=== PATIENT | male | born 1950 | race Caucasian/White ===

== ENCOUNTER 2018-01-16 03:09 | Outpatient (CLI) | payer BC, SELFPAY ==
[2018-01-16 13:06] LABS: ALT 43 U/L (12-78); AST 33 U/L (15-37); Albumin 3.9 g/dL (3.4-5.0); Alkaline Phosphatase 106 U/L (46-116); Anion Gap 4.2 mmol/L (3-11); BUN 12 mg/dL (7-18); CO2 29.8 mmol/L (21.0-32.0); CREATININE 1.12 mg/dL (0.70-1.30); Calcium 9.2 mg/dL (8.5-10.1); Chloride 106 mmol/L (98-107); Cholesterol 127 mg/dL (50-200); Glucose 98 mg/dL (70-100); HDL Cholesterol 45 mg/dL (40-60); LDL CHOLESTEROL 74 mg/dL (<100); Potassium 4.4 mmol/L (3.5-5.1); Sodium 140 mmol/L (136-145); Triglyceride 61 mg/dL (30-150)
[2018-01-19 10:09] LABS: HBs Antibody, Quant 159.1 mIU/mL; Hepatitis B Surface Ab Positive
[2018-01-19 10:41] LABS: Measles IgG Antibody Negative; Mumps Antibody IgG Negative; Rubella IgG Ab (UVM) Positive; Varicella IgG Antibody Positive
[2018-01-19 11:56] LABS: Hep A Total Ab w Rflx IgM Negative (NEGAT)
== END 2018-01-16 03:29 ==
PROVIDERS: PCP Nurse Practitioner Family; Visit Provider Nurse Practitioner Family
DX: Z00.00 Encounter for general adult medical examination without abnormal findings (principal); Z13.228 Encounter for screening for other metabolic disorders; Z13.220 Encounter for screening for lipoid disorders; Z11.59 Encounter for screening for other viral diseases
CPT/HCPCS: 36415; 80053; 80061; 83721; 86706; 86709; 86787; 86735; 86762; 86765

== ENCOUNTER 2018-02-26 10:23 | Outpatient (REF) | payer BC, SELFPAY | END 2018-02-26 10:43 | LOC: NCHCN 10:23 | PROVIDERS: PCP Nurse Practitioner Family; Visit Provider Nurse Practitioner Family | DX: R19.7 Diarrhea, unspecified (principal) | CPT/HCPCS: 82272; 83630; 87324 ==

== ENCOUNTER 2018-02-27 08:18 | Outpatient (REF) | payer BC, SELFPAY ==
[2018-02-28 10:49] LABS: Campylobacter PCR SEE COMMENTS; Salmonella PCR SEE COMMENTS; Shiga Toxin PCR SEE COMMENTS; Shigella/Enteroinvasive Ecoli SEE COMMENTS
== END 2018-02-27 08:38 ==
LOC: NCHCN 08:18
PROVIDERS: PCP Nurse Practitioner Family; Visit Provider Nurse Practitioner Family
DX: R19.7 Diarrhea, unspecified (principal)
CPT/HCPCS: 87329; 87505; 87177

== ENCOUNTER 2019-01-21 12:00 | Outpatient (REF) | payer BC, MEDICARE, SELFPAY ==
[2019-01-21 12:38] LABS: BUN 14 mg/dL (7-18); CREATININE 0.95 mg/dL (0.70-1.30); Calcium 9.2 mg/dL (8.5-10.1); Calculated LDL 82 mg/dL; Chloride 106 mmol/L (98-107); Cholesterol 142 mg/dL (50-200); Glucose 102 mg/dL (70-100); HDL Cholesterol 51 mg/dL (40-60); Potassium 4.4 mmol/L (3.5-5.1); Sodium 140 mmol/L (136-145); Triglyceride 47 mg/dL (30-150)
[2019-01-22 10:36] LABS: PSA, Screening 0.6 ng/ml (0-4.5)
== END 2019-01-21 12:20 ==
LOC: NCHCN 12:00
PROVIDERS: PCP Nurse Practitioner Family; Visit Provider Nurse Practitioner Family
DX: Z00.00 Encounter for general adult medical examination without abnormal findings (principal); R03.0 Elevated blood-pressure reading, without diagnosis of hypertension; M54.2 Cervicalgia; E78.5 Hyperlipidemia, unspecified; K22.70 Barrett's esophagus without dysplasia; Z12.5 Encounter for screening for malignant neoplasm of prostate
CPT/HCPCS: 80048; 80061; 84153

== ENCOUNTER 2019-07-23 06:49 | Outpatient (CLI) | payer BC, MEDICARE, SELFPAY ==
--- NOTE | 2019-07-23 | DI.US_ITS ---
EXAM: US CAROTID CLINICAL HISTORY: CAROTID ARTERY STENOSIS, BILATERAL, I65.23. TECHNIQUE: Ultrasound carotids performed using grayscale, color-flow, and spectral Doppler imaging. COMPARISON: No exams were available for comparison FINDINGS: On the right, there is mild to moderate calcific plaque in the carotid bulb and proximal internal car otid artery. No hemodynamically significant internal carotid artery stenosis is present. The right vertebral artery is antegrade. On the left, there is mild to moderate calcific plaque in the carotid bulb and proximal internal otoole tid artery. No hemodynamically significant internal carotid artery stenosis is present. The left ve rtebral artery is antegrade. IMPRESSION: No evidence for hemodynamically significant carotid stenosis. Criteria for Carotid Stenosis: Normal: ICA PSV <125 cm/s no plaque or intimal thickening is visible. <50% stenosis: ICA PSV <125 cm/s and plaque or intimal thickening is visible. 50-69% stenosis: ICA PSV is 125-250 cm/s and plaque is visible. >70% stenosis to near occlusion: ICA PSV >250 cm/s with visible plaque and luminal narrowing. DATA REPOSITORY:
== END 2019-07-23 07:09 ==
PROVIDERS: PCP Nurse Practitioner Family; Visit Provider Nurse Practitioner Family
DX: I65.23 Occlusion and stenosis of bilateral carotid arteries (principal)
CPT/HCPCS: 93880

== ENCOUNTER 2020-09-05 12:36 | Outpatient (REF) | payer BC, SELFPAY ==
[2020-09-05 14:11] LABS: ALT 42 U/L (16-63); AST 36 U/L (15-37); Albumin 4.1 g/dL (3.4-5.0); Alkaline Phosphatase 90 U/L (46-116); Anion Gap 7.8 mmol/L (3-11); BUN 14 mg/dL (7-18); Bilirubin, Total 1.4 mg/dL (0.2-1.0); CO2 28.2 mmol/L (21.0-32.0); Calcium 9.1 mg/dL (8.5-10.1); Calculated LDL 81 mg/dL (<100); Chloride 106 mmol/L (98-107); Cholesterol 143 mg/dL (<200); Glucose 101 mg/dL (74-106); HDL Cholesterol 53 mg/dL (40-60); Potassium 4.1 mmol/L (3.5-5.1); Sodium 142 mmol/L (136-145); Total Protein 7.2 g/dL (6.4-8.2); Triglyceride 49 mg/dL (<150)
== END 2020-09-05 12:37 | disposition home or self-care (01) ==
LOC: NCHCN 12:36
PROVIDERS: PCP Nurse Practitioner Family; Visit Provider Nurse Practitioner Family
DX: Z00.00 Encounter for general adult medical examination without abnormal findings (principal); E78.5 Hyperlipidemia, unspecified; R03.0 Elevated blood-pressure reading, without diagnosis of hypertension
CPT/HCPCS: 80053; 80061

== ENCOUNTER 2021-01-03 01:11 | Outpatient (CLI) | payer BC, SELFPAY ==
--- NOTE | 2021-01-03 | DI.CT_ITS ---
Exam(s) CT ABDOMEN W EXAM: CT ABDOMEN W CLINICAL HISTORY: RUQ PAIN, R10.11, ELEVATED BILIRUBIN, R17 TECHNIQUE: IV contrast: Omnipaque 350-100 mL Oral contrast: Yes COMPARISON: CT ABD PELVIS WITH CONTRAST from 08/17/2008 FINDINGS: Visualized lung bases are clear. No pleural effusions. There is no ascites evident in the upper abdomen. There is a 2 millimeter benign cyst in the left he patic lobe. No ominous focal hepatic lesions. Calcified granuloma in the right hepatic lobe is note d. No dilatation of intrahepatic ducts No obvious gallbladder pathology. CBD is not dilated. Pancreas appears unremarkable. No pancreatic masses nor dilatation of the pancreatic duct. There is no peripancreatic fluid. Spleen: Normal size. There are few calcified splenic granulomas. No ominous splenic lesions. The s plenic and portal veins are patent. Adrenals: No significant adrenal masses. Kidneys: No focal findings in the kidneys. No hydronephrosis. No hydroureter. Urinary bladder is n ot included in the field of view of this abdomen only study. Abdominal aorta: No aneurysm. However, the distal abdominal aorta is atherosclerotic and calcified a s are the visualized common hepatic arteries. No evidence of aneurysm of these vessels nor obvious t ight stenosis. Lymph nodes: There is no para-aortic adenopathy. There are no prominent mesenteric lymph nodes. Anterior abdominal wall: No evidence of significant hernia. Osseous: No compression fractures. Advanced disc space narrowing at L2-3 level. IMPRESSION: 1. In this patient apparently has elevated bilirubin there is no obvious abnormality in the gallbladd er on CT scan and there is no dilatation of the biliary tree, both intra and extrahepatic. Gallbladd er is not distended. There are no concerning hepatic lesions. 2. Calcified-atherosclerotic abdominal aorta but no evidence of significant aneurysm. 3. Please note that the pelvis was not scanned.
[2021-01-03] MEDS: Omnipaque 350 MG/ML 100 ML BTL IJ ×2 (13:54→13:55)
[2021-01-03] MEDS: Breeza Beverage 473 ML BTL PO (13:55)
== END 2021-01-03 01:31 ==
PROVIDERS: PCP Nurse Practitioner Family; Visit Provider Nurse Practitioner Family
DX: R10.11 Right upper quadrant pain (principal); R17 Unspecified jaundice; N25.9 Disorder resulting from impaired renal tubular function, unspecified; I70.0 Atherosclerosis of aorta
CPT/HCPCS: 74160; 82565; J3490

== ENCOUNTER 2021-01-17 16:27 | Outpatient (REF) | payer BC, SELFPAY ==
[2021-01-17 20:39] LABS: HCT 40.5 % (40.0-50.0); HGB 13.4 g/dL (13.5-17.5); MCH 30.5 pg (27.0-33.0); MCHC 33.1 % (32.0-36.0); Platelet Count 206 10^3/uL (130-400); RDW 12.8 % (11.8-14.1); WBC 5.26 10^3/uL (4.4-10.8)
[2021-01-17 20:43] LABS: Lipase 187 U/L (73-393)
[2021-01-17 20:47] LABS: Iron 85 ug/dL (65-175); Total Iron Binding Capacity 341 ug/dL (250-450); Transferrin Sat 25 % (20-55)
[2021-01-17 21:30] LABS: Vitamin B12 316 pg/mL (193-986)
== END 2021-01-17 16:28 | disposition home or self-care (01) ==
LOC: NCHCN 16:27
PROVIDERS: PCP Nurse Practitioner Family; Visit Provider Nurse Practitioner Family
DX: R17 Unspecified jaundice (principal)
CPT/HCPCS: 83690; 85027; 82607; 83540; 83550

== ENCOUNTER 2021-04-25 15:07 | Outpatient (REF) | payer BC, SELFPAY ==
[2021-04-26 09:33] LABS: PSA, Screening 0.9 ng/mL (0.0-4.5)
[2021-04-26 10:12] LABS: Hepatitis B Surface Ag Negative (Negative)
[2021-04-26 10:16] LABS: Hepatitis C Ab w Rflx HCV PCR Negative (Negative)
== END 2021-04-25 15:08 | disposition home or self-care (01) ==
LOC: NCHCN 15:07
PROVIDERS: PCP Nurse Practitioner Family; Visit Provider Family Medicine
DX: Z00.00 Encounter for general adult medical examination without abnormal findings (principal); Z12.5 Encounter for screening for malignant neoplasm of prostate; Z11.9 Encounter for screening for infectious and parasitic diseases, unspecified
CPT/HCPCS: 84153; 86803; 87340

== ENCOUNTER 2022-06-14 12:59 | Outpatient (REF) | payer MEDICARE, SELFPAY ==
[2022-06-14 15:16] LABS: HCT 45.5 % (40.0-50.0); HGB 15.1 g/dL (13.5-17.5); MCH 30.2 pg (27.0-33.0); MCHC 33.2 % (32.0-36.0); MCV 91 fL (80-95); MPV 11.2 fL (8.0-11.0); Platelet Count 141 10^3/uL (130-400); RDW 12.5 % (11.8-14.1); RDW-SD 41.2 fL; WBC 5.33 10^3/uL (4.4-10.8)
[2022-06-14 15:29] LABS: Calculated LDL 99 mg/dL (<100); Cholesterol 167 mg/dL (<200); HDL Cholesterol 52 mg/dL (40-60); Triglyceride 84 mg/dL (<150)
== END 2022-06-14 13:00 | disposition home or self-care (01) ==
LOC: NCHCN 12:59
PROVIDERS: PCP Nurse Practitioner Family; Visit Provider Nurse Practitioner Family
DX: E78.5 Hyperlipidemia, unspecified (principal); Z00.00 Encounter for general adult medical examination without abnormal findings
CPT/HCPCS: 80061; 85027

== ENCOUNTER 2022-06-18 17:18 | Outpatient (REF) | payer MEDICARE, SELFPAY ==
[2022-06-18 16:18] LABS: ALT 56 U/L (16-63); AST 50 U/L (15-37); Albumin 4.4 g/dL (3.4-5.0); Alkaline Phosphatase 96 U/L (46-116); Anion Gap 7.5 mmol/L (3-11); BUN 13 mg/dL (7-18); Bilirubin, Total 1.4 mg/dL (0.2-1.0); CO2 29.5 mmol/L (21.0-32.0); CREATININE 1.1 mg/dL (0.70-1.30); Calcium 9.7 mg/dL (8.5-10.1); Chloride 104 mmol/L (98-107); Estimated GFR 72.22 (mL/min/1.73m2); Glucose 99 mg/dL (74-106); Potassium 4.4 mmol/L (3.5-5.1); Sodium 141 mmol/L (136-145); Total Protein 8.1 g/dL (6.4-8.2)
== END 2022-06-18 17:19 | disposition home or self-care (01) ==
LOC: NCHCN 17:18
PROVIDERS: PCP Nurse Practitioner Family; Visit Provider Nurse Practitioner Family
DX: R03.0 Elevated blood-pressure reading, without diagnosis of hypertension (principal); E78.5 Hyperlipidemia, unspecified
CPT/HCPCS: 80053

== ENCOUNTER 2022-10-01 01:06 | Outpatient (CLI) | payer MEDICARE, SELFPAY ==
--- NOTE | 2022-10-01 07:45 | DI.US_ITS ---
Exam(s) US CAROTID EXAM: US CAROTID CLINICAL HISTORY: BILATERAL CAROTID ARTERY STENOSIS, I65.23. TECHNIQUE: Ultrasound carotids performed using grayscale, color-flow, and spectral Doppler imaging. COMPARISON: US US CAROTID from 07/23/2019 FINDINGS: RIGHT CAROTID ARTERY: Plaque: Mild calcific plaque is seen in the carotid bulb and proximal ICA. Velocity elevation: None. LEFT CAROTID ARTERY: Plaque: Calcific plaque is seen in the carotid bulb and proximal ICA. Velocity elevation: None. VERTEBRAL ARTERIES: Antegrade flow. Measurements: R Bulb: 69.8cm/s PS / 15.4cm/s ED R CCA: 80.2cm/s PS / 16.7cm/s ED R ECA: 164.7cm/s PS / 16.6cm/s ED R ICA Prox: 110.2cm/s PS / 23.1cm/s ED R ICA Mid: 65.1cm/s PS / 16cm/s ED R ICA Distal: 73.7cm/s PS /17cm/s ED R Vert: 103.2cm/s PS / 19.8cm/s ED R SVR: 1.4 R DVR: 1.4 L Bulb: 70.7cm/s PS / 16.6cm/s ED L CCA: 107.7cm/s PS / 18.6cm/s ED L ECA: 132cm/s PS / 14.8cm/s ED L ICA Prox: 65.3cm/s PS / 20.2cm/s ED L ICA Mid: 76.1cm/s PS / 20.2cm/s ED L ICA Distal: 76.1cm/s PS / 23.8cm/s ED L Vert: 30.7cm/s PS / 10.1cm/s ED L SVR: 0.7 L DVR: 1.1 IMPRESSION: No evidence for hemodynamically significant carotid stenosis. Criteria for Carotid Stenosis: Normal: ICA PSV <125 cm/s no plaque or intimal thickening is visible. <50% stenosis: ICA PSV <125 cm/s and plaque or intimal thickening is visible. 50-69% stenosis: ICA PSV is 125-250 cm/s and plaque is visible. >70% stenosis to near occlusion: ICA PSV >250 cm/s with visible plaque and luminal narrowing. DATA REPOSITORY:
== END 2022-10-01 01:26 ==
LOC: DI 01:07
PROVIDERS: PCP Nurse Practitioner Family; Visit Provider Nurse Practitioner Family
DX: I65.23 Occlusion and stenosis of bilateral carotid arteries (principal)
CPT/HCPCS: 93880

== ENCOUNTER 2022-12-25 11:18 | Outpatient (REF) | payer MEDICARE, SELFPAY ==
[2022-12-25 15:45] LABS: HCT 43.2 % (40.0-50.0); HGB 14.7 g/dL (13.5-17.5); MCH 30.5 pg (27.0-33.0); MCV 90 fL (80-95); MPV 11.4 fL (8.0-11.0); Platelet Count 211 10^3/uL (130-400); RBC 4.82 10^6/uL (4.36-5.78); RDW 12.5 % (11.8-14.1); WBC 5.25 10^3/uL (4.4-10.8)
[2022-12-25 16:26] LABS: ALT 52 U/L (16-63); AST 40 U/L (15-37); Alkaline Phosphatase 99 U/L (46-116); Anion Gap 10.9 mmol/L (3-11); BUN 14 mg/dL (7-18); Bilirubin, Total 1.1 mg/dL (0.2-1.0); CO2 26.1 mmol/L (21.0-32.0); CREATININE 1.1 mg/dL (0.70-1.30); Calcium 9.7 mg/dL (8.5-10.1); Chloride 106 mmol/L (98-107); Estimated GFR 72.22 (mL/min/1.73m2); Glucose 106 mg/dL (74-106); Potassium 4.4 mmol/L (3.5-5.1); Sodium 143 mmol/L (136-145); Total Protein 7.7 g/dL (6.4-8.2)
== END 2022-12-25 11:19 | disposition home or self-care (01) ==
LOC: NCHCN 11:18
PROVIDERS: PCP Nurse Practitioner Family; Visit Provider Family Medicine
DX: R74.8 Abnormal levels of other serum enzymes (principal)
CPT/HCPCS: 80053; 85027

== ENCOUNTER 2024-07-06 11:49 | Outpatient (REF) | payer MEDICARE, SELFPAY ==
[2024-07-06 16:39] LABS: ALT 77 U/L (16-63); AST 41 U/L (15-37); Albumin 4.2 g/dL (3.4-5.0); Alkaline Phosphatase 105 U/L (46-116); BUN 16 mg/dL (7-18); Bilirubin, Total 1.43 mg/dL (0.2-1.0); CREATININE 1.1 mg/dL (0.70-1.30); Calcium 9.7 mg/dL (8.5-10.1); Calculated LDL 97 mg/dL (<100); Chloride 105 mmol/L (98-107); Cholesterol 155 mg/dL (<200); Estimated GFR 71.32 (mL/min/1.73m2); Glucose 87 mg/dL (74-106); HDL Cholesterol 39 mg/dL (40-60); Potassium 4.4 mmol/L (3.5-5.1); Sodium 143 mmol/L (136-145); Total Protein 7.5 g/dL (6.4-8.2); Triglyceride 96 mg/dL (<150)
[2024-07-08 21:24] LABS: Unconjugated(Indirect) Bili 1.4 mg/dL (<=1.1)
== END 2024-07-06 11:50 | disposition home or self-care (01) ==
LOC: NCHCN 11:49
PROVIDERS: PCP Student in an Organized Health Care Education/Training Program; Visit Provider Student in an Organized Health Care Education/Training Program
DX: R74.9 Abnormal serum enzyme level, unspecified (principal); E78.5 Hyperlipidemia, unspecified
CPT/HCPCS: 80053; 80061; 82248

== ENCOUNTER 2024-07-15 12:06 | Outpatient (REF) | payer MEDICARE, SELFPAY ==
[2024-07-15 15:28] LABS: Abs Immature Grans 0.01 10^3/uL (0.0-0.06); Absolute Basophil Count 0.08 10^3/uL (0.0-0.2); Absolute Eosinophil Count 0.19 10^3/uL (0.0-0.7); Absolute Neutrophil Count 2.13 10^3/uL (1.2-6.7); Basophils % 1.6 %; Eosinophils % 3.9 %; HCT 43.7 % (40.0-50.0); HGB 14.6 g/dL (13.5-17.5); Immature Grans % 0.2 %; Lymphocytes % 40.7 %; MCH 30.2 pg (27.0-33.0); MCHC 33.4 % (32.0-36.0); MCV 91 fL (80-95); MPV 11.1 fL (8.0-11.0); Monocytes % 10.2 %; Neutrophils % 43.4 %; Platelet Count 195 10^3/uL (130-400); RBC 4.83 10^6/uL (4.36-5.78); RDW 12.7 % (11.8-14.1); RDW-SD 42.1 fL; WBC 4.91 10^3/uL (4.4-10.8)
== END 2024-07-15 12:07 | disposition home or self-care (01) ==
LOC: NCHCN 12:06
PROVIDERS: PCP Student in an Organized Health Care Education/Training Program; Visit Provider Student in an Organized Health Care Education/Training Program
DX: R17 Unspecified jaundice (principal)
CPT/HCPCS: 85025

== ENCOUNTER 2024-07-30 08:18 | Day surgery (SDC) | payer MEDICARE, SELFPAY ==
[2024-07-30] MEDS: Tropicam./Phenyleph. (1/2.5%) 5 ML BTL OD ×3 (08:54→09:01)
[2024-07-30 09:14] VITALS: BP 139/85; PULSE 61; RESP 16; TEMP 36.4; O2SAT 99
--- NOTE | 2024-07-30 09:25 | ANES.PREOP_ITS ---
General Info Date of Service Date Performed: 07/30/24 Height: 5 ft 10 in Weight: 91.4 kg Body Mass Index (BMI): 28.9 Surgical Procedure: Operation Date: 07/30/24 10:40 Proposed Procedure Side Surgeon p Cataract Extraction with IOL Implant Right Zach Meza MD Meds Allergies and Home Medications Allergies Allergy/AdvReac Type Severity Reaction Status Date / Time oxaprozin Allergy Unknown rash Verified 07/30/24 08:50 Anmtusz-REQ-JdV Reductase Allergy Unknown Verified 07/30/24 08:50 Inhibitor Home Medication ?Medication ?Instructions ?Recorded cyclobenzaprine 10 mg tablet 10 mg PO Q8H PRN 02/07/14 omeprazole 20 mg capsule,delayed 20 mg PO DAILY 10/02/16 release atorvastatin 10 mg tablet (Lipitor) 10 mg PO DAILY 10/22/16 Current Visit Medications: Current Medications Generic Name Dose Route Start Last Admin Trade Name Freq PRN Reason Stop Dose Admin Acetaminophen 1,000 mg 07/30/24 06:00 Acetaminophen 500 Mg Tab PO 08/29/24 05:59 Q4H PRN PRN Balanced Salt Solution 500 ml 07/30/24 06:00 Balanced Salt Soln.-Plus 500 Ml Bag OP 08/29/24 05:59 DIRECTED [facility] Miscellaneous Medication 0 ml 07/30/24 06:00 Prednisolone 1%, Moxifloxacin 0.5%, Bromfenac 0.09% 5.6ml Btl OD 08/29/24 05:59 DIRECTED [facility] Miscellaneous Medication 0 ml 07/30/24 06:00 07/30/24 09:01 Tropicam./Phenyleph. (1/2.5%) 5 Ml Btl OD 08/29/24 05:59 1 drp DIRECTED [facility]LE[facility] Administration Tetracaine HCl 0 ml 07/30/24 06:00 Tetracaine 0.5% 4 Ml Btl OD 08/29/24 05:59 DIRECTED [facility] PFSH Active Problems Active Problems: Problem Status Onset Code Posterior subcapsular age-related cataract, right eye Acute H25.041 Nuclear age-related cataract, right eye Acute H25.11 Exostoses, multiple Acute M89.8X0 Acute effect of ultraviolet radiation on normal skin Acute T66.XXXA Elevated blood pressure reading without diagnosis of hypertension Acute R03.0 Jaundice Acute R17 Neck pain Acute M54.2 Spinal stenosis in cervical region Acute M48.02 Chronic gastritis Acute K29.50 Hyperlipidemia Acute E78.5 Vitamin D deficiency Acute E55.9 Medical History Medical History Elevated liver enzymes Lesion of ear canal right ear. Dupuytren disease Pain of left thumb Olecranon bursitis of left elbow Encounter for routine adult health examination Overweight with body mass index (BMI) 25.0-29.9 Surgical History Surgical History EGD - IV Sedation (10/22/16) EGD (04/22/14) also colonoscopy same date; large tubular adenoma Tobacco Smoking/Tobacco Use Status: Former Tobacco Use Passive smoking exposure: No Alcohol Alcohol Intake: current Alcohol intake frequency: a few times a month Substance Use Substance use: Never Substance use type: does not use Vital Signs and Lab Results Vital Signs Most Recent Vital Signs in EMR: Most Recent Vital Signs Temp Pulse Resp BP Pulse Ox 36.4 C L 61 16 139/85 99 07/30/24 09:14 07/30/24 09:14 07/30/24 09:14 07/30/24 09:14 07/30/24 09:14 Lab Results Blood Type / Crossmatch: No Data to Display Complete Blood Count: White Blood Count 4.91 10^3/uL (4.4-10.8) 07/15/24 11:05 Red Blood Count 4.83 10^6/uL (4.36-5.78) 07/15/24 11:05 Hemoglobin 14.6 g/dL (13.5-17.5) 07/15/24 11:05 Hematocrit 43.7 % (40.0-50.0) 07/15/24 11:05 Platelet Count 195 10^3/uL (130-400) 07/15/24 11:05 Complete Metabolic Panel: Sodium 143 mmol/L (136-145) 07/06/24 11:40 Potassium 4.4 mmol/L (3.5-5.1) 07/06/24 11:40 Chloride 105 mmol/L (98-107) 07/06/24 11:40 Carbon Dioxide 31.0 mmol/L (21.0-32.0) 07/06/24 11:40 BUN 16 mg/dL (7-18) 07/06/24 11:40 Creatinine 1.1 mg/dL (0.70-1.30) 07/06/24 11:40 Est GFR (CKD-EPI 2020) 71.32 (mL/min/1.73m2) 07/06/24 11:40 Calcium 9.7 mg/dL (8.5-10.1) 07/06/24 11:40 Albumin 4.2 g/dL (3.4-5.0) 07/06/24 11:40 Glucose 87 mg/dL (74-106) 07/06/24 11:40 Liver Function Panel: Alanine Aminotransferase (ALT/SGPT) 77 U/L (16-63) H 07/06/24 1 1:40 Aspartate Amino Transf (AST/SGOT) 41 U/L (15-37) H 07/06/24 11: 40 Coagulation Panel: No Data to Display Cardiac Panel: No Data to Display Arterial Blood Gas: No Data to Display Venous Blood Gas: No Data to Display Pancreas Panel: No Data to Display Thyroid Panel: No Data to Display Infectious Disease: No Data to Display Blood Cultures: No Data to Display Toxicology Panel: No Data to Display Imaging and Studies Imaging and Studies Study information below may be from another EMR and interpreted by another provider. Please see original notes in EMR for more complete details. Stress Test Summary: 2013: No ischemia Carotid Artery Summary:: 2022:No evidence for hemodynamically significant carotid stenosis. Anesthesia Assessment and Plan Anesthesia History Personal History: No History of Anesthesia Complications Family History: No Family History of Anesthesia Complications Exercise Tolerance Exercise Tolerance: Metabolic Equivalents>4 Pertinent Negatives Pertinent Negatives: No Symptoms of GERD Cardiac & Pulmonary Exam Cardiac Exam: Normal S1/S2 Heart Sounds Pulmonary Exam: Clear Bilateral Breath Sounds Implantable Cardiac Device Does patient have a Pacemaker or an ICD?: No Airway Exam Known Difficult Airway: No Mallampati Class: 2 Mouth Opening: Normal (> 3cm) Thyromental Distance: Less than 3 cm Neck Range of Motion: Limited ROM Neck Circumference: Normal Teeth Condition: Normal Dentition ASA Classification ASA Score: ASA 2 Emergency Case?: No NPO Status NPO Status: NPO Clears >2 hours, Solids >8 hours Anesthesia Plan Resuscitation Status: Full Code Anesthesia Technique: MAC Anesthesia Airway Planned: Natural Airway Monitors Used: Standard Monitors
[2024-07-30 09:26] VITALS: BMI 28.9
[2024-07-30] MEDS: Tetracaine 0.5% 4 ML BTL OD (10:04)
[2024-07-30] MEDS: Povidone-Iodine Ophth 30 ML BTL (10:08)
[2024-07-30] MEDS: Duovisc Viscoelastic System EACH 1 EACH (10:13)
[2024-07-30] MEDS: Lidocaine 1% Pres-Free 5 ML VIAL (10:13)
[2024-07-30] MEDS: Phenylephrine/Lidocaine (15/10) MG/ML 1 ML VIAL (10:14)
[2024-07-30] MEDS: Balanced Salt Soln.-PLUS 500 ML BAG OP (10:15)
[2024-07-30] MEDS: Prednisolone 1%, Moxifloxacin 0.5%, Bromfenac 0.09% 5.6ML BTL OD (10:26)
[2024-07-30] MEDS: Moxifloxacin-PF 1 MG/ML VIAL (10:26)
[2024-07-30 10:31] VITALS: BP 141/87; PULSE 59; RESP 16; TEMP 36.2; O2SAT 98
--- NOTE | 2024-07-30 10:33 | W.PM.DSUDISC ---
Date of service: 07/30/24 Discharge Plan Disposition Patient Disposition: Home Discharge Details Attending Provider: Zach Meza Primary Care Provider: Maged Sinha Home Meds and New Rx's Prescriptions: No Action cyclobenzaprine 10 MG tablet 10 mg PO Q8H PRN Patient Comments: for spinal stenosis omeprazole 20 MG capsule,delayed release(DR/EC) 20 mg PO DAILY atorvastatin [Lipitor] 10 MG tablet 10 mg PO DAILY Discharge Instructions Stand Alone Forms: DSU Post-Op CataractKendra (DSU) Discharge Orders Discharge Orders: Discharge Order (Routine); Ordered 07/30/24 Ordered By: Zach Meza DS: Diagnosis Discharge Diagnosis (1) Posterior subcapsular age-related cataract, right eye: Status: Resolved (2) Nuclear age-related cataract, right eye: Status: Resolved
--- NOTE | 2024-07-30 10:35 | ROE_ITS ---
Operative Note Operative Note PRE-OP DIAGNOSIS: Nuclear/posterior subcapsular cataract, right eye POST-OP DIAGNOSIS: same PROCEDURE: Cataract extraction using phacoemulsification with intraocular lens implant, right eye SURGEON: Zach Meza ANESTHESIA TYPE: Local By Surgeon and MAC Refer to Anesthesia Record ESTIMATED BLOOD LOSS: 0 PATHOLOGY: none sent COMPLICATIONS: None Patient was transported to: same day Patient's condition: stable Implants: Tom Clareon [id number] Indications: Progressive decreased vision due to cataract, right eye Procedure Description: CATARACT SURGERY OPERATIVE REPORT PREOPERATIVE DIAGNOSIS: Nuclear/posterior subcapsular cataract, right eye POSTOPERATIVE DIAGNOSIS: Same OPERATION: Cataract extraction using phacoemulsification with posterior chamber intraocular lens implant, right eye. IOL: IOL Skid Wrapper/Model: Tom Clareon [id number] IOL Power: + 20.0 diopters IOL Serial Number: [id number] Optic Diameter: 6.0mm Haptic/Overall Diameter: 13.0mm PHACO INFO: Tom Integrated [employer] (IMMI)urion Vision System with OZil and Active Fluidics Cumulative Dispersed Energy (CDE): 5.08 seconds SURGEON: Zach Meza MD, CHELSEY ANESTHESIA: Monitored Anesthesia Care (MAC), with local sub-tenon's anesthetic infiltration COMPLICATIONS: None SPECIMENS: None INDICATIONS FOR PROCEDURE: The patient is a 74-year-old male with history of diminished visual acuity in his right eye secondary to the development of nuclear/posterior subcapsular cataract. He is significantly symptomatic that he desires cataract surgery in attempt to improve and maximize his vision. The option of cataract surgery was offered to the patient and he wished to proceed. See office notes for detailed information. PROCEDURE: The correct surgical eye was identified and marked as the right eye and the pupil was dilated in the preoperative area using mydriatics and cycloplegics. The dilated pupil size was 7.0 mm. The patient elected to proceed without oral sedation. The patient was brought to the operating room where cardiopulmonary monitoring was instituted and surgical time-out was performed, confirming the correct operative eye and IOL power. Topical anesthesia was administered and ophthalmic povidone-iodine 5% was instilled into the conjunctival fornices. The liv-ocular area was prepped with Betadine 10% solution and draped in the usual sterile fashion for intraocular surgery, including an aperture drape. A Tegaderm transparent film dressing was cut in half and used to cover the lashes and lid margins. Care was taken to sequester the lashes and lid margins under the Tegaderm dressing. A lid speculum was placed between the lids of the operative eye and the Tom LuxOR Revalia operating microscope was maneuvered into position. Taiwo scissors were then used to make a conjunctival buttonhole approximately 6mm posterior to the limbus in the inferonasal quadrant. Blunt dissection was carried out to expose bare sclera, and a blunt-tipped sub-tenon?s anesthesia cannula was introduced and passed posteriorly along the globe where non- preserved plain lidocaine was injected into posterior sub-Tenon?s space. A sideport knife was used to make a paracentesis port. Intraocular phenylephrine/lidocaine was injected into the anterior chamber. The anterior chamber was then filled with viscoelastic. A keratome knife was used to construct a two--plane clear corneal tunnel extending 2.0mm into clear cornea. A flap was raised on the anterior capsule and capsulorhexis forceps were used to complete a continuous curvilinear capsulorhexis of 5.0 mm. Balanced salt solution was then used to perform cortical cleaving hydrodissection and nuclear hydrodelineation until the lens could be freely rotated within the capsular bag. The lens nucleus was then disassembled and removed within the capsular bag and iris plane using phacoemulsification. Residual cortical material was removed using the I/A handpiece. The posterior capsule was carefully polished to remove as much residual lens epithelial cells as safely possible. The capsular bag was then inflated and the anterior chamber deepened with cohesive viscoelastic. The lens implant described above was inserted into the capsular bag using the Tom Autonome Injector. A Kuglen hook was used to dial the IOL into position. Residual viscoelastic was then removed first from posterior to the IOL, then from the anterior chamber using the I/A handpiece. The lens implant was noted to center nicely within the capsular bag. The incisions were stromally hydrated, and the anterior chamber was reformed using BSS. Then 0.5cc of moxifloxacin 1.0mg/ml were injected into the capsular bag and anterior chamber. The incisions were checked with a Weck spear and found to be secure. Several drops of ophthalmic povidone-iodine 5% were then applied to the eye followed by two drops of combination steroid/NSAID/antibiotic solution. The drapes were removed and a clear plastic protective eye shield was placed over the eye. The patient was then returned to Same Day Surgery in stable condition. Date of Procedure: 07/30/24
--- NOTE | 2024-07-30 10:52 | W.ANESPOSTOP ---
Postoperative Evaluation Date, Time and Location Date Performed: 07/30/24 Time Performed: 10:47 Patient Location: Day Surgery Unit Vital Signs Most Recent Imported Vital Signs: Most Recent Vital Signs Temp Pulse Resp BP Pulse Ox 36.2 C L 59 L 16 141/87 H 98 07/30/24 10:31 07/30/24 10:31 07/30/24 10:31 07/30/24 10:31 07/30/24 10:31 Pain Score Most Recent Pain Score: Most Recent Pain Score Pain Level 0 07/30/24 10:31 Assessment Mental Status: Awake (Alert & Oriented to Patient Baseline) Airway and Respiratory Function: Patent airway with normal (patient baseline) respiratory exam Cardiovascular Function: Hemodynamically Stable Hydration Status: Adequately Hydrated Nausea & Vomiting: No Nausea or Vomiting Pain: Pt. Denies Any Pain Peripheral Nerve Block: Patient did not receive a nerve block
== END 2024-07-30 10:58 | disposition home or self-care (01) ==
PROVIDERS: PCP Student in an Organized Health Care Education/Training Program; Visit Provider Ophthalmology
PROC: (CPT 66984; principal; 2024-07-30 10:30)
DX: H25.041 Posterior subcapsular polar age-related cataract, right eye (principal); H25.11 Age-related nuclear cataract, right eye
CPT/HCPCS: 66984; 00123; V2632; J2003

== ENCOUNTER 2024-08-06 08:12 | Day surgery (SDC) | payer MEDICARE, SELFPAY ==
[2024-08-06] MEDS: Tropicam./Phenyleph. (1/2.5%) 5 ML BTL OS ×3 (08:32→08:54)
[2024-08-06 08:34] VITALS: BP 135/79; PULSE 58; RESP 16; TEMP 36.2; O2SAT 99
[2024-08-06] MEDS: Moxifloxacin-PF 1 MG/ML VIAL (09:10)
[2024-08-06] MEDS: Lidocaine 1% Pres-Free 5 ML VIAL (09:10)
[2024-08-06] MEDS: Phenylephrine/Lidocaine (15/10) MG/ML 1 ML VIAL (09:11)
[2024-08-06] MEDS: Duovisc Viscoelastic System EACH 1 EACH (09:13)
[2024-08-06] MEDS: Povidone-Iodine Ophth 30 ML BTL (09:13)
[2024-08-06] MEDS: Balanced Salt Soln.-PLUS 500 ML BAG OP (09:14)
[2024-08-06] MEDS: Tetracaine 0.5% 4 ML BTL OS (09:14)
[2024-08-06] MEDS: Prednisolone 1%, Moxifloxacin 0.5%, Bromfenac 0.09% 5.6ML BTL OS (09:15)
--- NOTE | 2024-08-06 09:28 | W.PM.DSUDISC ---
Date of service: 08/06/24 Discharge Plan Disposition Patient Disposition: Home Discharge Details Attending Provider: Zach Meza Primary Care Provider: Maged Sinha Home Meds and New Rx's Prescriptions: No Action omeprazole 20 MG capsule,delayed release(DR/EC) 20 mg PO DAILY atorvastatin [Lipitor] 10 MG tablet 10 mg PO DAILY Discharge Instructions Stand Alone Forms: DSU Post-Op Cataract, Kendra Riley (DSU) Discharge Orders Discharge Orders: Discharge Order (Routine); Ordered 08/06/24 Ordered By: Zach Meza DS: Diagnosis Discharge Diagnosis (1) Posterior subcapsular age-related cataract of left eye: Status: Resolved (2) Nuclear age-related cataract, left eye: Status: Resolved
--- NOTE | 2024-08-06 09:29 | W.PM.OP ---
Operative Note Operative Note PRE-OP DIAGNOSIS: Nuclear/posterior subcapsular cataract, left eye POST-OP DIAGNOSIS: same PROCEDURE: Cataract extraction using phacoemulsification with intraocular lens implant, left eye SURGEON: Zach Meza ANESTHESIA TYPE: Local By Surgeon and MAC Refer to Anesthesia Record PATHOLOGY: none sent COMPLICATIONS: None Patient was transported to: same day Patient's condition: stable Implants: Tom Clareon [id number] Indications: Progressive decreased vision due to cataract, left eye Procedure Description: CATARACT SURGERY OPERATIVE REPORT PREOPERATIVE DIAGNOSIS: Nuclear/posterior subcapsular cataract, left eye POSTOPERATIVE DIAGNOSIS: Same OPERATION: Cataract extraction using phacoemulsification with posterior chamber intraocular lens implant, left eye. IOL: IOL Spring Production Supervisor/Model: Tom Clareon [id number] IOL Power: + 21.0 diopters IOL Serial Number: [id number] Optic Diameter: 6.0mm Haptic/Overall Diameter: 13.0mm PHACO INFO: Tom [employer]ion Vision System with OZil and Active Fluidics Cumulative Dispersed Energy (CDE): 5.54 seconds SURGEON: Zach Meza MD, CHELSEY ANESTHESIA: Local sub-tenon's anesthetic infiltration COMPLICATIONS: None SPECIMENS: None INDICATIONS FOR PROCEDURE: The patient is a 74-year-old male with history of diminished visual acuity in both eyes secondary to the development of bilateral nuclear/posterior subcapsular cataract. He has already undergone cataract surgery in his right eye and is doing well postoperatively. He now presents for cataract surgery in the left eye. See office notes for detailed information. PROCEDURE: The correct surgical eye was identified and marked as the left eye and the pupil was dilated in the preoperative area using mydriatics and cycloplegics. The dilated pupil size was 7.0 mm. The patient elected to proceed without oral sedation. The patient was brought to the operating room where cardiopulmonary monitoring was instituted and surgical time-out was performed, confirming the correct operative eye and IOL power. Topical anesthesia was administered and ophthalmic povidone-iodine 5% was instilled into the conjunctival fornices. The liv-ocular area was prepped with Betadine 10% solution and draped in the usual sterile fashion for intraocular surgery, including an aperture drape. A Tegaderm transparent film dressing was cut in half and used to cover the lashes and lid margins. Care was taken to sequester the lashes and lid margins under the Tegaderm dressing. A lid speculum was placed between the lids of the operative eye and the Tom LuxOR Revalia operating microscope was maneuvered into position. Taiwo scissors were then used to make a conjunctival buttonhole approximately 6mm posterior to the limbus in the inferonasal quadrant. Blunt dissection was carried out to expose bare sclera, and a blunt-tipped sub-tenon?s anesthesia cannula was introduced and passed posteriorly along the globe where non-preserved plain lidocaine was injected into posterior sub-Tenon?s space. A sideport knife was used to make a paracentesis port. Intraocular phenylephrine/lidocaine was injected into the anterior chamber. The anterior chamber was then filled with viscoelastic. A keratome knife was used construct a two-plane clear corneal tunnel extending 2.0mm into clear cornea. A flap was raised on the anterior capsule and capsulorhexis forceps were used to complete a continuous curvilinear capsulorhexis of 5.0 mm. Balanced salt solution was then used to perform cortical cleaving hydrodissection and nuclear hydrodelineation until the lens could be freely rotated within the capsular bag. The lens nucleus was then disassembled and removed within the capsular bag and iris plane using phacoemulsification. Residual cortical material was removed using the irrigation/aspiration handpiece. The posterior capsule was carefully polished to remove as much residual lens epithelial cells as safely possible. The capsular bag was then inflated and the anterior chamber deepened with viscoelastic. The lens implant described above was inserted into the capsular bag using the Tom Autonome Injector. A Kuglen hook was used to dial the IOL into position. Residual viscoelastic was then removed first from posterior to the IOL, then from the anterior chamber using the I/A handpiece. The lens implant was noted to center nicely within the capsular bag. The incisions were stromally hydrated, and the anterior chamber was reformed using BSS. Then 0.5cc of moxifloxacin 1.0mg/ml were injected into the capsular bag and anterior chamber. The incisions were checked with a Weck spear and found to be secure. Several drops of ophthalmic povidone-iodine 5% were then applied to the eye followed by two drops of combination steroid/NSAID/antibiotic solution. The drapes were removed and a clear plastic protective eye shield was placed over the eye. The patient was then returned to Same Day Surgery in stable condition. Date of Procedure: 08/06/24
[2024-08-06 09:30] VITALS: BP 135/93; PULSE 57; RESP 16; TEMP 36.5; O2SAT 98
== END 2024-08-06 09:50 | disposition home or self-care (01) ==
LOC: SUR 08:12
PROVIDERS: PCP Student in an Organized Health Care Education/Training Program; Visit Provider Ophthalmology
PROC: (CPT 66984; principal; 2024-08-06 10:30)
DX: H25.042 Posterior subcapsular polar age-related cataract, left eye (principal); H25.12 Age-related nuclear cataract, left eye
CPT/HCPCS: 66984; 00123; V2632; J2003

== ENCOUNTER 2025-01-20 02:48 | Outpatient (CLI) | payer MEDICARE, SELFPAY ==
--- NOTE | 2025-01-20 | ETT_ITS ---
APPROVED REPORT Exam: Exercise Treadmill Patient Location: Out-Patient Room/Bed: Stress Nurse: Kwasi Sandra RN Ordering Provider:KAY PAULA, Contact Number: [phone] BMI: 30.26 Baseline Rhythm: Sinus Rhythm. Comment: Resting ST-T abnormalities. Indications: Dyspnea; Exertional Dyspnea and Discomfort. Medical History Medical History: HLD; HTN; Obesity; Former Smoker. Cardiac Medications: Atorvastatin; Lisinopril; Omeprazole. Allergies: Oxaprozin. Cardiac Risk Factors: Family Hx; HLD; HTN; Obesity; Former Smoker. Previous Cardiac Procedures: None. Pretest Chest Pain Characteristics: None. Exercise History: Sedentary. Physical Disabilities: None. Lung Sounds: Clear bilaterally throughout, anterior and posterior. Heart Sounds: S1 and S2 auscultated. Stress Test Details Test: Exercise stress testing was performed using a Elmuel protocol. Rest Stress HR Resting HR Supine: 61 bpm Max Heart Rate (APMHR): 148 bpm Resting HR Standin bpm Target HR (85% APMHR): 126 bpm Max HR Achieved: 136 bpm % of APMHR: 92 Recovery HR: 82 bpm HR response to stress: Normal HR response to stress. BP Resting BP Supine: 150/82 mmHg Resting BP Standin/88 mmHg Max BP: 182/92 mmHg Recovery BP: 160/90 mmHg BP response to stress: Normal blood pressure response to stress. ECG Resting ECG: Sinus Rhythm. Ectopy: None. Comment: Resting ST-T abnormalities. Stress ECG: Sinus Tachycardia. ST Change: No significant ST segment changes noted, Nondiagnostic resting ST abnormalities. Arrhythmia: Rare PAC. Comment: Resting ST-T abnormalities. Recovery ECG: Sinus Rhythm. Recovery ST Change: No significant ST segment changes noted, Nondiagnostic resting ST abnormalities. Recovery Arrhythmia: Occasional PAC's; Occasional PVC's. Comment: Resting ST-T abnormalities. Clinical Reason for Termination: Target HR Achieved; Dyspnea. Stress Symptoms: Dyspnea. Exercise duration: 04 min18 sec Highest Stage Reached: Stage 2: 2.5 mph at 12% grade. Exercise capacity: 5 METs Angina Score: None Ceron Treadmill Score: 3.4 Rate Pressure Product: [id number] Stress ECG Conclusion 1. Resting electrocardiogram showed minor diffuse nondiagnostic ST-T abnormalities 2. Patient exercised on the Lemuel protocol completed a workload of 5 METS 3. Normal heart rate and blood pressure response to exercise. The patient achieved 92% of maximal predicted heart rate for age 4. The electrocardiographic portion of the test was notable for an additional [address] depression at peak exercise. In recovery STs became downsloping. These findings are suggestive of myocardial ischemia 5. There were no significant dysrhythmias Ceron Treadmill Score is 3.4 which is Moderate risk. Stress Test Summary STAGE Time (mins) Speed (mph) Grade (%) HR BP SpO2 SYMPTOMS METS Supine 61 150/82 97 Pt. denied any symptoms. Standing 64 132/88 98 Pt. denied any symptoms. 1 3 1.7 10 126 140/70 98 Pt. c/o mild shortness of breath. 4.5 2 6 2.5 12 136 98 Pt. c/o moderate shortness of breath. Pt. requesting to stop the ETT. 7 1 min recovery 113 138/70 98 Pt. c/o moderate shortness of breath. 3 min recovery 94 182/92 98 Pt. c/o mild shortness of breath. 6 min recovery 82 180/90 98 Pt. denies shortness of breath. Pt. states that all symptoms have resolved. 9 min recovery 82 160/90 98 Pt. denied any symptoms. Pt. performed an ETT stress test using the Lemuel protocol. ETT was stopped when pt. reached a heart rate higher than the target heart rate and when pt. requested to stop the ETT due to moderate shortness of breath. Resting ST-T abnormalities noted prior to starting the ETT. During Stage 1 of exercise, pt. c/o mild shortness of breath. During Stage 2 of exercise, pt. c/o moderate shortness of breath. Pt. requesting to stop the ETT. During Stage 1 of recovery, pt. c/o moderate shortness of breath. During Stage 2 of recovery, pt. c/o mild shortness of breath. During Stage 3 of recovery, pt. denies shortness of breath. Pt. states that all symptoms have resolved. During Stage 4 of recovery, pt. denied any symptoms. Pt. was conversing pleasantly with nursing staff upon leaving the Stress Lab. Pt. left ambulatory in no apparent distress.
== END 2025-01-20 03:08 ==
LOC: DI 02:48
PROVIDERS: PCP Student in an Organized Health Care Education/Training Program; Visit Provider Physician Assistant
DX: R06.09 Other forms of dyspnea (principal)
CPT/HCPCS: 93016; 93018; 93017

== ENCOUNTER → 2025-04-04 13:16 | Outpatient (CLI) | payer MEDICARE, SELFPAY ==
--- NOTE | 2025-04-04 11:52 | DI.RAD_ITS ---
Exam(s) XR CHEST 2V PA LATERAL EXAM: XR CHEST 2V PA LATERAL CLINICAL HISTORY: ACUTE COUGH R05.1 DECREASED AIR FLOW LLL S/P CABG 2 WEEKS AGO TECHNIQUE: 2D digital imaging was performed of the chest. Two images were obtained. PA and lateral views were obtained. COMPARISON: CT CT ABDOMEN W from 01/03/2021 FINDINGS: MEDIASTINUM: Normal. HEART: Status post CABG. Heart size is within normal limits. PULMONARY VASCULATURE: Normal. LUNGS: The right lung is clear. Left basilar atelectasis is suspected. PLEURAL SPACE: There is a moderate size left pleural effusion. There is no right pleural effusion. There is no pneumothorax. BONE:Within normal limits for the patient's age. Sternal wires are in place. OTHER FINDINGS:Normal. IMPRESSION: Moderate left pleural effusion and left basilar atelectasis. DATA REPOSITORY: RADIATION DOSE DELIVERED:
== END ==
LOC: DI 13:17
PROVIDERS: PCP Student in an Organized Health Care Education/Training Program; Visit Provider Physician Assistant
DX: R05.1 Acute cough (principal); J98.11 Atelectasis
CPT/HCPCS: 71046

== ENCOUNTER 2025-04-11 08:06 | Outpatient (CLI) | payer MEDICARE, SELFPAY ==
--- NOTE | 2025-04-11 08:00 | RT.EKG_ITS ---
APPROVED REPORT Exam: Resting ECG Reason for Exam: CAD Patient Location: O HR:75 bpm ECG Measurements Heart Rate 75 AXIS WI 117 P 44 QRSd 89 QRS 53 QT 414 T 55 QTc 463 Conclusion Sinus rhythm...normal P axis, V-rate 50- 99 Borderline short WI interval...WI int <120mS Nonspecific T abnormalities, anterior leads...T <-0.10mV, V2-V4
== END 2025-04-11 08:07 | disposition home or self-care (01) ==
LOC: DI.CARD 08:06
PROVIDERS: PCP Student in an Organized Health Care Education/Training Program; Visit Provider Registered Nurse
DX: I25.10 Atherosclerotic heart disease of native coronary artery without angina pectoris (principal)
CPT/HCPCS: 93010

== ENCOUNTER → 2025-04-11 12:53 | Outpatient (BNVA) | payer MEDICARE, SELFPAY | PROVIDERS: PCP Student in an Organized Health Care Education/Training Program; Referring Provider Student in an Organized Health Care Education/Training Program; Visit Provider Registered Nurse | DX: I25.10 Atherosclerotic heart disease of native coronary artery without angina pectoris (principal); Z95.1 Presence of aortocoronary bypass graft; I10 Essential (primary) hypertension; Z79.02 Long term (current) use of antithrombotics/antiplatelets; Z79.899 Other long term (current) drug therapy | CPT/HCPCS: 99215; 93005 ==

== ENCOUNTER → 2025-04-18 09:53 | Outpatient (BNVA) | payer MEDICARE, SELFPAY | PROVIDERS: PCP Student in an Organized Health Care Education/Training Program; Referring Provider Student in an Organized Health Care Education/Training Program; Visit Provider Surgery | DX: J90 Pleural effusion, not elsewhere classified (principal) | CPT/HCPCS: 99214; 76604 ==

== ENCOUNTER 2025-04-26 07:43 | Day surgery (SDC) | payer MEDICARE, SELFPAY ==
--- NOTE | 2025-04-25 19:28 | W.PM.DSUDISC ---
Date of service: 04/26/25 Discharge Plan Disposition Patient Disposition: Home Condition: Good Discharge Details Reason For Visit: Thoracentesis Attending Provider: Faustino Mac Primary Care Provider: Ramon Keating Home Meds and New Rx's Prescriptions: Continued lisinopril 5 mg tablet 5 mg PO DAILY omeprazole 20 MG capsule,delayed release(DR/EC) 20 mg PO DAILY atorvastatin [Lipitor] 80 mg tablet 80 mg PO DAILY Patient Comments: 04/04/25 per [facility] d/c [facility] metoprolol succinate 50 mg tablet extended release 24 hr 50 mg PO DAILY Patient Comments: 04/04/25 per [facility] d/c [facility] aspirin [Adult Aspirin Regimen] 81 mg tablet,delayed release (DR/EC) 81 mg PO DAILY Patient Comments: 04/04/25 per [facility] d/c [facility] No Action acetaminophen [Acetaminophen Extra Strength] 500 mg tablet 500 mg PO ONCE Patient Comments: 1000 mg Discharge Instructions Instructions: Thoracentesis (DC) Additional Instructions: Simón was great seeing you today, and I hope you feel well after the procedure. As we discussed, expect to be coughing a little bit over the next day or 2. Hopefully, however, things will improve fairly dramatically as that long reexpands. You have a small Band-Aid over the puncture site, which can be replaced if it becomes bloody. Keep a Band-Aid over the incision site for the next 24 hours. Tomorrow, you are welcome to remove that, shower, and leave the little open to the air. If there is any drainage from it, a Band-Aid can be used to control that. You already have well-established follow-up care, so I do not need to see you in particular my office. But if you need anything at any point or have any questions at all, please do not hesitate to call. Stand Alone Forms: Kendra Riley (DSU), Portal Information Activity:: Activity as Tolerated Remove Dressings/Wound Care:: 24 hours Shower/Bathe:: 24 hours Diet:: As Tolerated Discharge Orders Discharge Orders: Discharge Order (Routine); Ordered 04/25/25 Ordered By: Faustino Mac DS: Diagnosis Discharge Diagnosis (1) Pleural effusion, left: Status: Acute Asessment and Plan: Status post left thoracentesis. Follow-up as needed.
--- NOTE | 2025-04-25 19:29 | OPPNE_ITS ---
Date of service: 04/26/25 Time of Service: 09:44 Procedure Note Date of procedure: 04/26/25 Procedure: Left thoracentesis Surgeon/Proceduralist/Physician: Faustino Mac Procedure Diagnosis: Lft pleural effusion Procedure Indications: Corby is a 75-year-old male with left-sided pleural effusion after coronary artery bypass surgery. He has had some exertional dyspnea, as well as a p ersistent cough, and is surgical team requested thoracentesis Procedure Description: I met with Corby in the preoperative area, we reviewed the plan for left-sided thoracentesis. I explained the risks and the benefits of the procedure, and what to expect in terms of the actual procedure itself. He was able to provide informed consent. We then moved back to the procedure room. He was assisted to the seated position, and supported with a bedside stand. I performed a limited ultrasound of the left hemithorax confirming the presence of a large pleural effusion that was a suitable target for thoracentesis. I then prepped and draped the left back. I raised a skin wheal using local anesthetic. I made a small incision. Next, with real time ultrasound guidance, I advanced a thoracentesis needle and catheter kit through the incision, over the rib, and into the pleural space. Thin liquid was aspirated, which gave the gross appearance of old hemothorax. The catheter was gently advanced, and the needle was removed. Fifty cc of fluid was gently aspirated into a syringe for specimens for pleural fluid analysis, Gram stain and culture. Suction tubing was then secured to the catheter, and a Vacutainer was used to evacuate approximately 1250 mL of pleural effusion. Simón tolerated the procedure fine. The catheter was removed under positive expiratory pressure, and a Band-Aid was used to dress the wound. He was transferred back to the day surgery unit, where chest x-ray will be obtained.
--- NOTE | 2025-04-26 | DI.RAD_ITS ---
Exam(s) XR PORTABLE CHEST AP EXAM: XR PORTABLE CHEST AP CLINICAL HISTORY: Status post left thoracentesis TECHNIQUE: 2D digital imaging was performed of the chest. One image was obtained. An AP view was obtained. COMPARISON: CR XR CHEST 2V PA LATERAL from 04/04/2025 FINDINGS: MEDIASTINUM: Normal. HEART: Normal. Status post CABG. PULMONARY VASCULATURE: Normal. LUNGS: There are no focal consolidating infiltrates. PLEURAL SPACE: No pleural effusion or pneumothorax. The patient is status post left thoracentesis. There is no residual effusion identified. BONE:Within normal limits for the patient's age. There are sternal wires in place. OTHER FINDINGS:Normal. IMPRESSION: No acute pulmonary findings. DATA REPOSITORY: RADIATION DOSE DELIVERED:
[2025-04-26 08:09] VITALS: BP 116/77; PULSE 78; RESP 20; TEMP 36.2; O2SAT 98
--- NOTE | 2025-04-26 09:25 | PAPNONF_PTH ---
PATIENT: Corby Hernandes LOC: [facility] U#:[id number] AGE/SX: 75/M ROOM: RE04/26/[address]: Faustino Mac MD : [id number] BED: DIS: 04/26/2025 SPEC #: [id number] RECD: 04/26/25 12:52 STATUS: JOAQUIN REQ #: [id number] BEBETO: 04/26/25 09:[address]: Faustino Mac DEPT: [facility] Cytology RECD BY: Che Olivia ENTERED: 04/26/25 12:53 SP TYPE: DELIA CASTILLO DR: Ramon Keating Tissues: 1 - BODY FLUID CYTO(NOT S/U/N/EM)[facility] Procedures: BODY FLUID CYTO(NOT SPU/UR/NIP/ENDOM)[facility] Comments: [id number] (TV = 850 ml, SENT FRESH) (REFRIGERATED)
[2025-04-26 09:45] VITALS: BP 132/81; PULSE 69; RESP 20; TEMP 36.4; O2SAT 97
[2025-04-26 10:41] LABS: Polynuclear Cells 6 %
[2025-04-26 17:05] LABS: Glucose, Fluid 104 mg/dL (See Note)
[2025-04-28 10:43] LABS: Lactate Dehydrogenase (LD), BF 209 U/L
[2025-04-28 11:16] LABS: Protein,Total, BF 4.9 g/dL
== END 2025-04-26 10:09 | disposition home or self-care (01) ==
PROVIDERS: PCP Physician Assistant; Visit Provider Surgery
PROC: (CPT 32554; principal; 2025-04-26 09:15)
DX: J90 Pleural effusion, not elsewhere classified (principal)
CPT/HCPCS: 32555; 82042; 87116; 87206; 71045; 81373; 83615; 83986; 84157; 87070; 87075; 87205; 88104; 89051